=== PATIENT | female | born 2000 | race Caucasian/White ===

== ENCOUNTER 2022-09-21 16:39 | Emergency (ER) | payer OTHER, SELFPAY ==
--- NOTE | ~2022-09-21 | MR_ITS ---
MR LUMBAR SPINE WITHOUT IV CONTRAST CLINICAL INFORMATION: Severe low back pain. COMPARISON: Lumbar spine CT 09/22/2022. TECHNIQUE: MRI of the lumbar spine was obtained using routine sequences without contrast. FINDINGS: There are 5 nonrib-bearing lumbar-type vertebral bodies. Lumbar alignment is normal. The vertebral body heights are maintained. There is mild disc volume loss and there is disc desiccation at L4-L5 and L5-S1. There is no bone marrow edema. There are no acute fractures. Bone marrow signal is homogenous and normal. Conus terminates at the T12-L1 level. There are no significant extraspinal soft tissue findings. The L1-L2, L2-L3, and L3-L4 disc contours remain normal. There is no central canal stenosis and there is no foraminal stenosis at these levels. L4-L5: There is a shallow disc protrusion that mildly indents the ventral thecal sac and that mildly contacts without compressing the traversing L5 nerve roots within the subarticular zones bilaterally. Background annular disc bulge and mild bilateral facet arthropathy. . L5-S1: Small annular disc bulge and mild bilateral facet arthropathy. Superimposed shallow left paracentral disc protrusion associated with an annular fissure that results in mild posterior deflection of the traversing left S1 nerve root within the left subarticular zone. There is mild foraminal encroachment bilaterally. MR/MR lumbar spine wo con IMPRESSION: - At L4-L5, there is a shallow disc protrusion that mildly indents the ventral thecal sac and that mildly contacts without compressing the traversing L5 nerve roots within the subarticular zones bilaterally. - At L5-S1, a shallow left paracentral disc protrusion associated with an annular fissure results in mild posterior deflection of the traversing left S1 nerve root within the left subarticular zone.
--- NOTE | ~2022-09-21 | CT_ITS ---
EXAMINATION: CT LUMBAR SPINE WITHOUT CONTRAST CLINICAL INFORMATION: Lower back pain from L3 to L5. COMPARISON: None TECHNIQUE: Multidetector volumetric imaging of the lumbar spine performed without IV contrast. Coronal and sagittal reformatted images are obtained and reviewed. This CT examination was performed using dose optimization techniques as appropriate, variously including the following: *Automated exposure control *Adjustment of mA and/or kV according to patient size (this includes techniques or standardized protocols for targeted exams where dose is matched to indication/reason for exam; i.e. extremities or head) *Use of iterative reconstruction technique DLP; 437 mGy-cm FINDINGS: No fracture or subluxation. Vertebral body height and alignment maintained. Mild disc space narrowing at L4-L5. Small disc bulges of L4-L5 and L5-S1. The sacroiliac joints are symmetric. The sacrum is intact. The visualized intra-abdominal structures show no acute abnormality. Paraspinal musculature is symmetric. CT/CT lumbar spine wo IV con IMPRESSION: No acute osseous abnormality. Mild disc space narrowing with small disc bulges of the lower lumbar spine.
[2022-09-21 17:12] VITALS: BP 138/96; PULSE 98; RESP 18; TEMP 37.1; O2SAT 99; BMI 31.6
--- NOTE | 2022-09-21 22:01 | ED_ITS ---
HPI - Back Pain/Injury General Chief Complaint: Back Pain/Injury Stated Complaint: back pain Time Seen by Provider: 09/21/22 21:40 Source: patient Mode of arrival: ambulatory Limitations: no limitations History of Present Illness HPI Narrative: 22-year-old female with a history of chronic back pain presenting today after tweaking her back while opening a cabinet. Patient is able to ambulate but states 8/10 pain upon movement. Patient denies numbness or tingling of all limbs. Patient states that she has had gradually worsening lower back pain since high school, denies any inciting trauma. Patient currently sees a chiropractor once a week and saw a physical therapist a year ago. She was told by those pr oviders that she has herniated discs, she has never had imaging done of her back. Patient denies loss bowel or bladder control, loss of sensation, loss of consciousness, headache, tremors, weakness, paralysis, shortness of breath, chest pain, fever, chills, N/V, saddle paresthesias. Related Data Previous Rx's Medication Instructions Recorded cyclobenzaprine 10 mg tablet 10 mg PO BEDTIME PRN muscle spasm 09/22/22 #7 tabs lidocaine 5 % topical patch 1 patch topical DAILY PRN pain #15 09/22/22 ea morphine 15 mg immediate release 15 mg PO Q6H PRN pain 5 days #10 09/22/22 tablet tabs prednisone 20 mg tablet 40 mg PO DAILY 5 days #10 tabs 09/22/22 Allergies Allergy/AdvReac Type Severity Reaction Status Date / Time kiwi Allergy Itching Verified 09/21/22 17:16 Review of Systems Review of Systems: Constitutional : No Weight loss, No Fever, No Chills, ENT/Mouth : No Hearing loss, No Ear Pain, No Nasal Congestion, No Sinus Pain, No Hoarseness, No sore throat, No Rhinorrhea, No Swallowing Difficulty Cardiovascular : No Chest Pain, No SOB Respiratory : No Cough, No Dyspnea Gastrointestinal : No Nausea, No Vomiting, No Diarrhea, No abdominal Pain, No Hematochezia, No Melena Genitourinary : No Dysuria, No Urinary Frequency, No Hematuria, No Urinary Incontinence, Musculoskeletal : positive back pain Skin : No Skin Lesions, No rash Neuro : No Weakness, No Numbness, No Paresthesias, no loss of bowel or bladder incontinence, no saddle anesthesia Yes all other systems are reviewed and are negative [facility] Past Medical History Attestation statement: The following information was validated with the patient. Source: old records reviewed and nursing notes reviewed Social History Social History Advance Directives: No Advance Directives Information Provided: No Physical Exam Vital Signs: Vital Signs: Last Vital Signs Temp 97.5 F 09/22/22 00:00 Pulse 75 09/22/22 00:00 Resp 16 09/22/22 00:00 BP 102/69 09/22/22 00:00 Pulse Ox 95 09/22/22 00:00 O2 Del Method 09/22/22 00:00 BMI result Body Mass Index 31.6 Appearance: Alert.? Oriented X3.? No acute distress.?Sitting in wheelchair due to pain with ambulation Head: Normocephalic, atraumatic, no step-offs or deformities Eyes: Pupils equal, round and reactive to light.? ENT: Pharynx normal.? Neck: Normal inspection.? Neck supple.? CVS: Normal heart rate and rhythm.? Pulses normal.? Respiratory: No respiratory distress.? Breath sounds normal.? Abdomen: Soft and nontender.? Skin: Skin warm and dry.? Normal skin color.? Normal skin turgor.? Extremities: No lower extremity edema.? No calf ttp. 5/5 strength to bilateral upper and lower extremities Back: No midline tenderness, no C-spine tenderness, full range of motion, no CVA tenderness bilaterally, +paraspinal tenderness to b/l lumbar region, some midline tenderness to L3-L5 region. Neuro: Oriented X 3.? No motor deficit.? No sensory deficit. CN 2-12 intact . No saddle paresthesias. Course Reevaluation(s) Reevaluation #1: Nursing staff came up to me and stated that they tried to bring patient to the bathroom for urine, patient was in excruciating pain, crying on the toilet, IV morphine ordered. Time: 23:07 Reevaluation #2: Patient's CBC with no acute findings. ESR within normal limits. Chemistry with no acute findings requiring acute intervention. CRP negative. Urine negative. CT of the lumbar spine without contrast revealing no acute osseous abnormality. However there is mild disc space narrowing with small disc bulges of the lower lumbar spine concerning for possible herniated discs. Again these laboratory findings support the fact that this is unlikely epidural abscess or cauda equina. Patient's pain improved after morphine. Patient will have to see a specialist for her back pain. Educated patient on diagnosis and treatment plan, answered all question, patient verbalizes understanding. At this time patient will be discharged home, advised to return with new or worsening symptoms. Educated on worrisome signs and symptoms and when to return. At this time I feel comfortable discharge home. To note an ambulatory trial was done prior to patient's discharge, she is ambulating much more comfortably than before. I did given additional dose of pain meds as patient was still reporting some pain however much improved from initially. Will discharge patient home on p.o. morphine. Educated her on proper use of this medication. Time: 00:58 Medications Administered Discontinued Medications Generic Name Dose Route Start Last Admin Trade Name Freq PRN Reason Stop Dose Admin Ketorolac Tromethamine 30 mg 09/21/22 21:53 09/21/22 22:02 Ketorolac Tromethamine 30 Mg/Ml Vial IM 09/21/22 21:54 30 mg ONCE ONE Administration Lidocaine 1 patch 09/21/22 21:53 09/21/22 22:03 Lidocaine 4 % Patch Adh..Patch TRANSDERMA 09/21/22 21:54 1 patch ONCE ONE Administration Protocol Morphine Sulfate 4 mg 09/21/22 22:58 09/21/22 23:20 Morphine Sulfate 4 Mg/Ml Cartridge IVPUSH 09/21/22 22:59 4 mg ONCE ONE Administration Protocol Medical Decision Making Medical Decision Making [facility] Narrative: 22-year-old with chronic back pain presents with back pain radiating down her legs after tweaking if today while open a cabinet. Patient denies red flag symptoms. Physical exam significant for paraspinal tenderness in lumbar region, some midline tenderness to L3-L5 region. positive straight leg raise bilaterally, no saddle paresthesias, neuro nonfocal Likely lumbar spasm versus lumbar radiculopathy, other possible differentials include herniated disc. . No signs of cord compression, cauda equina, or epidural abscess. Not consistent with [place] Plan: Pain management and CT spine Differential Diagnosis Differential Diagnoses: The differential diagnosis associated with the presentation includes Likely lumbar spasm versus lumbar radiculopathy, other possible differentials include herniated herniated disc. . No signs of cord compression, cauda equina, or epidural abscess. Not consistent with [place] Admission/Observation Consideration of admission/observation: Escalation of care including admission/observation considered Unlikely Lab Data MDM Lab Attestation statement: I reviewed the patient's lab results. 09/21/22 23:58 09/21/22 23:58 Labs: Lab Results 09/21/22 09/21/22 09/21/22 Range/Units 23:22 23:58 23:58 WBC 7.8 (4.8-10.8) X10*3/uL RBC 4.22 (4.20-5.50) X10*6/uL Hgb 12.2 (12.0-16.0) g/dl Hct 36.2 L (37.0-47.0) % MCV 85.8 (80.0-98.0) fL MCH 28.9 (27.0-33.0) pg MCHC 33.7 (31.0-35.0) g/dl RDW 12.3 (11.0-16.0) % Plt Count 294 (160-400) X10*3/uL MPV 10.0 (9.4-12.3) fL Immature Gran % (Auto) 0.1 (0.0-0.4) % Neut % (Auto) 45.3 (45-73) % Lymph % (Auto) 44.0 H (20-40) % [place] % (Auto) 7.4 (2-11) % Eos % (Auto) 2.8 (0-4) % Baso % (Auto) 0.4 (0-2) % Lymph # (Auto) 3.4 (1.2-4.9) X10*3/uL [place] # (Auto) 0.6 (0.1-1.2) X10*3/uL Eos # (Auto) 0.2 (0.0-0.4) X10*3/uL Baso # (Auto) 0.0 (0.0-0.2) X10*3/uL Abs Immat Gran (auto) 0.01 (0.00-0.03) X10*3/uL Absolute Neuts (auto) 3.5 (2.0-8.3) x10*3/uL Absolute Nucleated RBC 0.000 (0.0-0.012) X10*3/uL Nucleated RBC % (auto) 0.0 (0.0-0.2) /100WBC ESR 5 (0-20) MM/HR Sodium (135-145) mmol/L Potassium (3.3-5.1) mmol/L Chloride (96-108) mmol/L Carbon Dioxide (22-29) mmol/L Anion Gap (12-20) BUN (9-16) mg/dL Creatinine (0.5-1.4) mg/dL Estim Creat Clear Calc Estimated GFR Random Glucose (60-115) mg/dL Calcium (8.4-10.2) mg/dL Total Bilirubin (0.0-1.0) mg/dL AST (5-31) U/L ALT (0-31) U/L Alkaline Phosphatase (39-117) U/L C-Reactive Protein (< or = 0.50) mg/dL Total Protein (6.5-8.0) g/dL Albumin (3.5-5.0) g/dL Urine Test NEGATIVE (NEGATIVE) 09/21/22 Range/Units 23:58 WBC (4.8-10.8) X10*3/uL RBC (4.20-5.50) X10*6/uL Hgb (12.0-16.0) g/dl Hct (37.0-47.0) % MCV (80.0-98.0) fL MCH (27.0-33.0) pg MCHC (31.0-35.0) g/dl RDW (11.0-16.0) % Plt Count (160-400) X10*3/uL MPV (9.4-12.3) fL Immature Gran % (Auto) (0.0-0.4) % Neut % (Auto) (45-73) % Lymph % (Auto) (20-40) % [place] % (Auto) (2-11) % Eos % (Auto) (0-4) % Baso % (Auto) (0-2) % Lymph # (Auto) (1.2-4.9) X10*3/uL [place] # (Auto) (0.1-1.2) X10*3/uL Eos # (Auto) (0.0-0.4) X10*3/uL Baso # (Auto) (0.0-0.2) X10*3/uL Abs Immat Gran (auto) (0.00-0.03) X10*3/uL Absolute Neuts (auto) (2.0-8.3) x10*3/uL Absolute Nucleated RBC (0.0-0.012) X10*3/uL Nucleated RBC % (auto) (0.0-0.2) /100WBC ESR (0-20) MM/HR Sodium 139 (135-145) mmol/L Potassium 3.9 (3.3-5.1) mmol/L Chloride 109 H (96-108) mmol/L Carbon Dioxide 20 L (22-29) mmol/L Anion Gap 14 (12-20) BUN 13 (9-16) mg/dL Creatinine 0.72 (0.5-1.4) mg/dL Estim Creat Clear Calc 130.6 Estimated GFR > 60 Random Glucose 102 (60-115) mg/dL Calcium 9.5 (8.4-10.2) mg/dL Total Bilirubin 0.8 (0.0-1.0) mg/dL AST 18 (5-31) U/L ALT 12 (0-31) U/L Alkaline Phosphatase 35 L (39-117) U/L C-Reactive Protein < 0.10 (< or = 0.50) mg/dL Total Protein 7.1 (6.5-8.0) g/dL Albumin 4.1 (3.5-5.0) g/dL Urine Test (NEGATIVE) Independent Interpretation I performed an independent interpretation of an: CT Scan (Mild disc space narrowing with small disc bulges of lower lumbar spine.) Radiology Impression Discussion of test interpretation with radiology: I have reviewed the rad iologist's reading. Core Measures AMI core measures followed: Yes Measure exclusions: not indicated Critical Care Time Critical Care Time Critical Care Time: No Discharge Plan Discharge Clinical Impression: Lower back pain, Lumbar disc herniation Patient Disposition: Home, Self-Care Instructions: Acute Low Back Pain (ED) Additional Instructions: Take your medications as prescribed. If you were prescribed antibiotics today, it is important that you take your medication to their entirety, do not skip any doses, do not finish them early. Follow-up with your primary care provider this week. Please follow-up with [facility]. Return to the emergency department with new or worsening symptoms. Such as fevers, chills, chest pain, shortness of breath, nausea, vomiting, dizziness, headache, vision changes, lethargy, urinary or bowel incontinence, saddle paresthesias or numbness between your legs, weakness, worsening pain or changes in quality of pain In case of emergency call 911 Morphine is a pain medicine that is been sent to your pharmacy please take this only for severe pain. For [id number] pain you can take ibuprofen every 6 hours, Tylenol every 4 hours. Please note that morphine is a narcotic medication meaning it was controlled and can cause addiction. It can cause somnolence, drowsiness, and you can overdose on this medication if you do not take it as prescribed therefore it is important that you take this medication ex actly as prescribed. Do not sure this medication with any body. Do not mix this medication with alcohol. Do not take this while driving or operating machinery. It can cause drowsiness. Cyclobenzaprine is a muscle relaxer that can also cause drowsiness. Please do not take this while driving or operating machinery. Prescriptions: New morphine 15 mg tablet 15 mg PO Q6H PRN (Reason: pain) 5 Days Qty: 10 0RF Rx Instructions: Partial Fill upon patient request. cyclobenzaprine 10 mg tablet 10 mg PO BEDTIME PRN (Reason: muscle spasm) Qty: 7 0RF prednisone 20 mg tablet 40 mg PO DAILY 5 Days Qty: 10 0RF lidocaine 5 % adhesive patch,medicated 1 patch topical DAILY PRN (Reason: pain) Qty: 15 0RF Rx Instructions: leave on most painful area for up to 12 hrs Referrals: [facility] [Provider Group] - 1 day Alexandra Mckinley FNP [Primary Care Provider] - 2 days Stand Alone Forms: Work/School Release
[2022-09-21] MEDS: Ketorolac Tromethamine 30 MG/ML VIAL IM (22:02)
[2022-09-21] MEDS: Lidocaine 4 % Patch ADH..PATCH 1 PATCH TRANSDERMA (22:03)
[2022-09-21] MEDS: Morphine Sulfate 4 MG/ML CARTRIDGE IVPUSH (23:20)
[2022-09-21 23:33] LABS: UPreg QC Valid YES; Urine Pregnancy NEGATIVE (NEGATIVE)
[2022-09-22] VITALS: BP 102/69; PULSE 75; RESP 16; TEMP 36.4; O2SAT 95
[2022-09-22 00:04] LABS: MANUAL DIFF FLAG NO
[2022-09-22 00:14] LABS: Basophils Percent Auto 0.4 % (0-2); Eosinophils Absolute Auto 0.2 X10*3/uL (0.0-0.4); Eosinophils Percent Auto 2.8 % (0-4); Hematocrit 36.2 % (37.0-47.0); Hemoglobin 12.2 g/dl (12.0-16.0); Imm Gran Abs Auto 0.01 X10*3/uL (0.00-0.03); Imm Gran Pct Auto 0.1 % (0.0-0.4); Lymphocytes Absolute Auto 3.4 X10*3/uL (1.2-4.9); Mean Corpuscular HGB Conc 33.7 g/dl (31.0-35.0); Mean Corpuscular Hemoglobin 28.9 pg (27.0-33.0); Mean Corpuscular Volume 85.8 fL (80.0-98.0); Monocytes Absolute Auto 0.6 X10*3/uL (0.1-1.2); Monocytes Percent Auto 7.4 % (2-11); Neutrophils Absolute Auto 3.5 x10*3/uL (2.0-8.3); Neutrophils Percent Auto 45.3 % (45-73); Platelet Count 294 X10*3/uL (160-400); Red Blood Count 4.22 X10*6/uL (4.20-5.50); Red Cell Distribution Width 12.3 % (11.0-16.0); White Blood Count 7.8 X10*3/uL (4.8-10.8)
[2022-09-22 00:26] LABS: Alanine Aminotransferase 12 U/L (0-31); Albumin Level 4.1 g/dL (3.5-5.0); Alkaline Phosphatase 35 U/L (39-117); Anion Gap 14 (12-20); Aspartate Amino Transferase 18 U/L (5-31); Bilirubin Total 0.8 mg/dL (0.0-1.0); Blood Urea Nitrogen 13 mg/dL (9-16); C Reactive Protein < 0.10 mg/dL (< or = 0.50); Calcium 9.5 mg/dL (8.4-10.2); Carbon Dioxide 20 mmol/L (22-29); Chloride 109 mmol/L (96-108); Creatinine Clr Calc Pharmacy 130.6; Estimated Glomerular Filt Rate > 60; Glucose Random 102 mg/dL (60-115); Potassium 3.9 mmol/L (3.3-5.1); Sodium 139 mmol/L (135-145); Total Protein 7.1 g/dL (6.5-8.0)
[2022-09-22 00:52] LABS: Erythrocyte Sedimentation Rate 5 MM/HR (0-20)
[2022-09-22] MEDS: HYDROmorphone HCl 0.5 MG/0.5 ML SYRINGE IVPUSH ×3 (01:10→09:51)
--- NOTE | 2022-09-22 01:16 | PC.NURSE ---
Pt ambulated after receiving dilaudid. Pt required assistance to get out of her wheelchair but her gait was steady once she got up. After several steps, she reported her back was spasming again and her pain increased. PA was at the bedside for ambulation. Ordered more dilaudid.
[2022-09-22 01:17] VITALS: BP 150/92; PULSE 70; RESP 16; O2SAT 100
[2022-09-22] MEDS: diazePAM 2 MG TABLET PO (01:34)
[2022-09-22] MEDS: HYDROmorphone HCl 1 MG/ML SYRINGE IVPUSH (03:49)
[2022-09-22] MEDS: diazePAM 10 MG/2 ML CARTRIDGE 5 MG IVPUSH (03:49)
[2022-09-22] MEDS: ondansetron HCL 4 MG/2 ML VIAL IVPUSH (03:50)
[2022-09-22] MEDS: dexAMETHasone sod phosphate 10 MG/ML VIAL IVPUSH (04:43)
--- NOTE | 2022-09-22 05:22 | PC.NURSE ---
Pt oob with 1 hajaby assist. pt reported lower back tighten when she attempts to take a step. Dr. jane
[2022-09-22 06:00] VITALS: BP 121/79; PULSE 69; RESP 18; TEMP 36.3; O2SAT 96
[2022-09-22 07:59] VITALS: BP 127/78; PULSE 89; RESP 18; TEMP 36.6; O2SAT 100
[2022-09-22] MEDS: Haloperidol Lactate 5 MG/ML VIAL IVPUSH (09:50)
[2022-09-22] MEDS: Ketorolac Tromethamine 15 MG/ML VIAL IVPUSH (09:51)
[2022-09-22] MEDS: Acetaminophen 325 MG TABLET 650 MG PO (09:51)
[2022-09-22 11:22] VITALS: BP 137/85; PULSE 86; RESP 18; TEMP 37.1; O2SAT 97
== END 2022-09-22 12:43 | disposition home or self-care (01) ==
PROVIDERS: Physician Assistant; Emergency Provider Emergency Medicine; PCP Nurse Practitioner Family
DX: M51.26 Other intervertebral disc displacement, lumbar region (principal); Z79.899 Other long term (current) drug therapy
CPT/HCPCS: 36415; 72131; 72148; 72158; 80053; 81025; 85025; 85652; 86140; 96372; 96374; 96375; 96376; 99284; 99285; J1100; J1170; J1885; J2270; J2405; J3360